=== PATIENT | female | born 1985 | race Caucasian/White ===

== ENCOUNTER 2016-07-17 15:10 | Inpatient (IN) | payer BC ==
[2016-07-17] MEDS ORDERED: Sodium Chloride 0.9% 10 ML Syringe FLUSH PRN (16:13)
[2016-07-17] MEDS ORDERED: Lactated Ringers 1,000 ML IV SCH (16:15)
[2016-07-17] MEDS ORDERED: Oxytocin/Normal Saline 10 UNIT/1,000 ML BAG IV SCH (19:45)
[2016-07-17] MEDS: Lactated Ringers 1,000 ML IV SCH (20:23)
[2016-07-18] MEDS: Lactated Ringers 1,000 ML IV SCH ×3 (00:37→11:22)
[2016-07-18] MEDS ORDERED: fentaNYL 300 MCG in Ropivacaine 200 ML IV ONE (02:00)
[2016-07-18] MEDS ORDERED: fentaNYL 100 MCG/2 ML SDV EPIDUR ONE (02:00)
--- NOTE | 2016-07-18 08:07 | PCM.LDHP ---
L&D History of Present Illness - General Date of Service: 07/17/16 Admit Problem/Dx: Patient Status Order with Admit Dx/Problem 07/17/16 15:09 Patient Status [ADT] Routine Admission Diagnosis/Problem Admission Diagnosis/Problem Normal labor Source of Information: Patient, Old records History Limitations: Reports: No limitations - History of Present Illness Introduction:: 31 primigravida with PROM,while at work today.Mild contractions. Improves with: Reports: None Worsens with: Reports: None Associated Symptoms: Denies: vaginal bleeding, vaginal clots - Related Data Allergies/Adverse Reactions: Allergies Allergy/AdvReac Type Severity Reaction Status Date / Time No Known Allergies Allergy Verified 07/17/16 16:06 Home Medications: Home Meds Citalopram Hydrobromide [Celexa] 20 mg PO DAILY 07/17/16 [History] [place]-3 Fatty Acids [Fish Oil] 300 mg PO DAILY 07/17/16 [History] Pantoprazole Sodium [Protonix] 40 mg PO DAILY 07/17/16 [History] Vit W-Ca,Fe,FA(<1 mg) [ Vitamins] 1 each PO DAILY 07/17/16 [ History] Past Medical History HEENT History: Reports: Impaired vision Cardiovascular History: Reports: Heart murmur Other Cardiovascular History: Pt reports slight heart murmer, high cholesterol 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: Psychiatric History: Reports: Anxiety, Depression - Infectious Disease History Infectious Disease History: Reports: Chicken pox - Past Surgical History HEENT Surgical History: Reports: Oral surgery Cardiovascular Surgical History: Reports: None Respiratory Surgical History: Reports: None GI Surgical History: Reports: None Other Musculoskeletal Surgeries/Procedures:: broken wrist Social & Family History - Family History Family Medical History: Noncontributory Cardiac: Reports: High cholesterol, Hypertension Other Cardiac Family History: Father OBGYN: Reports: Other OBGYN Family History: sister has PCOS Psychiatric: Reports: Anxiety, Depression Other Psychiatric Family History: Mother - Tobacco Use Smoking Status *Q: Former Smoker Years of Tobacco use: 10 Packs/Tins Daily: 0.5 Used Tobacco, but Quit: Yes Month Tobacco Last Used: November Second Hand Smoke Exposure: No - Caffeine Use Caffeine Use: Reports: None - Recreational Drug Use Recreational Drug Use: No H&P Review of Systems - Review of Systems: Review Of Systems: ROS reveals no pertinent complaints other than HPI. L&D Exam - Exam Exam: See Below - Vital Signs Vital Signs: Last Vital Signs Temp 98.3 F 07/18/16 02:15 Pulse 55 L 07/18/16 06:15 Resp 18 07/18/16 02:15 BP 115/80 07/18/16 06:15 Pulse Ox 100 07/18/16 05:00 Weight: 92.986 kg - OB Specific Contraction Duration (sec): 80-100 Contraction Frequency (min): 2-6 Contraction Intensity: Moderate to Strong - Acosta Score Acosta Score Cervix Position: Posterior Acosta Score Consistency: Soft Acosta Score Dilation: Closed Acosta Score 's Station: -2 - Exam Quality Assessment: No: supplemental oxygen General: alert, oriented HEENT: PERRLA, Conjunctiva clear Neck: supple Lungs: Clear to auscultation Cardiovascular: regular rate Abdomen: normal bowel sounds Rectal Exam: Normal exam Genitourinary: Normal external exam Back Exam: normal inspection Extremities: normal inspection Skin: warm Neurological: cranial nerves intact Psychiatric: alert - Problem List (1) PROM (premature rupture of membranes) SNOMED Code(s): 58053566 ICD Code: O42.90 - ALEX ROM, 7TH0 BETW RUPT & ONST LABR, UNSP WEEKS OF GEST Status: Acute Current Visit: Yes Problem List Initiated/Reviewed/Updated: Yes Orders Last 24hrs: Active Orders 24 hr Category Date Time Status Patient Status [ADT] Routine ADT 07/17/16 15:09 Active Antiembolic Devices [RC] .Routine Care 07/17/16 16:16 Active Up ad Michelle [RC] ASDIRECTED Care 07/17/16 16:15 Active Vital Signs [RC] PER UNIT ROUTINE Care 07/17/16 16:13 Active Lactated Ringers [Ringers, Lactated] 1,000 ml Med 07/17/16 16:15 Active IV .BOLUS Lactated Ringers [Ringers, Lactated] 1,000 ml Med 07/17/16 19:45 Active IV ASDIRECTED Oxytocin/Normal Saline [Pitocin in NS 10 UNITS/1,000 ML Med 07/17/16 19:45 Active ] 10 unit in 1,000 ml IV TITRATE Sodium Chloride 0.9% [Saline Flush] Med 07/17/16 16:13 Active 10 ml FLUSH ASDIRECTED PRN DVT/VTE Prophylaxis Reflex [OM.PC] Routine Oth 07/17/16 15:09 Ordered Peripheral IV Insertion Adult [OM.PC] Urgent Oth 07/17/16 16:13 Ordered Resuscitation Status Routine Resus Stat 07/17/16 16:13 Ordered Medication Orders Lactated Ringer's (Ringers, Lactated) 1,000 mls @ 999 mls/hr IV .BOLUS JAVIER Oxytocin/Sodium Chloride (Pitocin In Ns 10 Units/1,000 Ml) 10 unit in 1,000 mls @ 12 mls/hr IV TITRATE JAVIER; 2 MUNITS/MIN PRN Reason: Protocol Last Titration: 07/18/16 04:25 Dose: 4 munits/min, 24 mls/hr Titration: 07/18/16 03:40 Dose: 2 munits/min, 12 mls/hr Titration: 07/17/16 23:58 Dose: 6 munits/min, 36 mls/hr Titration: 07/17/16 23:11 Dose: 8 munits/min, 48 mls/hr Titration: 07/17/16 21:41 Dose: 6 munits/min, 36 mls/hr Titration: 07/17/16 21:03 Dose: 4 munits/min, 24 mls/hr Admin: 07/17/16 20:23 Dose: 2 munits/min, 12 mls/hr Lactated Ringer's (Ringers, Lactated) 1,000 mls @ 125 mls/hr IV ASDIRECTED JAVIER Last Admin: 07/18/16 04:23 Dose: 150 mls/hr Infusion: 07/18/16 02:37 Dose: 500 mls/hr Admin: 07/18/16 00:37 Dose: 500 mls/hr Infusion: 07/18/16 00:09 Dose: 500 mls/hr Infusion: 07/17/16 22:35 Dose: 500 mls/hr Admin: 07/17/16 20:23 Dose: 100 mls/hr Sodium Chloride (Saline Flush) 10 ml FLUSH ASDIRECTED PRN PRN Reason: Keep Vein Open Assessment/Plan Comment:: Induce labor by Pitocin.
--- NOTE | 2016-07-18 08:08 | PCM.PNLD ---
Labor Progress Note - VS & Meds Vital Signs: Last Vital Signs Temp 98.3 F 07/18/16 02:15 Pulse 55 L 07/18/16 06:15 Resp 18 07/18/16 02:15 BP 115/80 07/18/16 06:15 Pulse Ox 100 07/18/16 05:00 Active Medications: Current Medications Lactated Ringer's (Ringers, Lactated) 1,000 mls @ 999 mls/hr IV .BOLUS JAVIER Oxytocin/Sodium Chloride (Pitocin In Ns 10 Units/1,000 Ml) 10 unit in 1,000 mls @ 12 mls/hr IV TITRATE JAVIER; 2 MUNITS/MIN PRN Reason: Protocol Last Titration: 07/18/16 04:25 Dose: 4 munits/min, 24 mls/hr Lactated Ringer's (Ringers, Lactated) 1,000 mls @ 125 mls/hr IV ASDIRECTED JAVIER Last Admin: 07/18/16 04:23 Dose: 150 mls/hr Sodium Chloride (Saline Flush) 10 ml FLUSH ASDIRECTED PRN PRN Reason: Keep Vein Open - Uterine Contractions Uterine Monitoring Mode: External Bergoo Contraction Frequency (min): 2-6 Contraction Duration (sec): 80-100 Contraction Intensity: Moderate to Strong Uterine Resting Tone: Soft - Monitoring Heart Rate (FHR) Variability: Moderate (6-25 bmp) Accelerations: Present, 15x15 Decelerations: Early, Variable Strip Review: Category I - Vaginal Exam Dilation (cm): 2 Effacement (Percent): 80 Station: -2 Cervical Position: Midposition Sterile Vaginal Exam Performed By: Corina Bahena Vaginal Exam Comment: Cervix is still very posterior - Labor Progress (Free Text) Labor Progress: Will continue with Pit as long as the baby tolerates induction. Consider C delivery if no imminent delivery by evening
[2016-07-18] MEDS ORDERED: Naloxone 0.4 MG/ML SDV IVPUSH PRN (08:59)
[2016-07-18] MEDS ORDERED: diphenhydrAMINE 50 MG/ML SDV IVPUSH PRN (08:59)
[2016-07-18] MEDS ORDERED: Naloxone 0.4 MG in Sodium Chloride 0.9% 100 ML IV PRN (08:59)
[2016-07-18] MEDS ORDERED: ePHEDrine 50 MG/ML SDV IVPUSH PRN (08:59)
[2016-07-18] MEDS ORDERED: Ondansetron 4 MG/2 ML SDV IVPUSH PRN (09:00)
[2016-07-18] MEDS ORDERED: Ondansetron 4 MG/2 ML SDV ONE (09:01)
[2016-07-18] MEDS: Pantoprazole 40 MG Tab.CR PO SCH (09:49)
[2016-07-18] MEDS: Citalopram 20 MG Tab PO SCH (09:49)
[2016-07-18] MEDS ORDERED: Oxytocin 10 Units/1 ML SDV IM ONE (14:00)
[2016-07-18] MEDS ORDERED: Lidocaine 1% 20 ML MDV INJECT ONE (14:00)
[2016-07-18] MEDS: Ibuprofen 600 MG Tab PO PRN ×2 (16:27→22:20)
[2016-07-18] MEDS ORDERED: Acetaminophen/Codeine 300-30 MG Tab PO PRN (20:35)
[2016-07-19] MEDS: Ibuprofen 600 MG Tab PO PRN (04:37)
--- NOTE | 2016-07-19 05:35 | DEL ---
DATE OF DELIVERY: 07/18/2016 DELIVERY TYPE: Vacuum-assisted delivery. MEDICAL CODING SPECIALIST: Ann Izaguirre LPN; Phyllis, RN; and Loreto, RN. INDICATION: Non-reassuring heart rate in second stage. PERMIT: I explained the risks and benefits to the father and mother of the baby that due to maternal exhaustion and deep decelerations, a decision had to be made about expediting delivery. Risks involved include scalp hematoma, encephalopathy, intracranial hemorrhage, and maternal tissue injury. They accepted the risks and benefits and we proceeded. DETAILS OF THE DELIVERY: The patient progressed to about to complete at around noon whereby pushing was initiated at around 1230 hours. There is caput formation noted during push. The baby's heart rate was showing moderate variability with good accelerations and initially category 1. I was in the room in and out for about 1-1/2 hours to assess the patient. At around 1330 hours, I determined the position of the baby to be occipito posterior, with a station of about 2+ by digital measurement in relation to the ischial spine. I estimated the weight to be about 7 pounds. The maternal bladder was emptied. The patient had an epidural after couple pushes with deep deceleration albeit with good recovery, we proceeded with a vacuum delivery. I used stiff or rigid cup which was applied by parting the labia and making sure there was no maternal tissue involvement. Suction was applied and with only one pull, the baby's head was delivered. The suction was removed and the baby's entire body was gently delivered. The cord was cut and clamped and baby handed to the waiting nurses. Time of delivery was 1358 hours. The placenta was delivered with minimal traction and a second degree tear of the perineum midline was repaired with a 4- 0 Vicryl. Estimated blood loss less than 300 mL. Pitocin was given 10 units IM. The baby was initially not vigorous and cyanotic, needed resuscitation with Ambu bag and gentle rubbing. score estimated to be about 5 at 1 minute and 8 at 5 minutes. The mother was stable after delivery. Additional help for the baby was called for oxygenation. Using Ambu bag, heart rate came up to more than 110 and initial temperature 98.1. Respiratory rate came up to 24 and oxygen saturation up to 94% on 2 L. Blood gas was venous obtained, showed a pH of 7.2 at about 15 minutes. I then called [facility], they advised passive cooling protocol, IV fluids at 10 DW at 7.5 mL/h. The NICU team was dispatched to collect the baby. The mother is stable in the delivery room, but she has asked to be discharged to follow the baby to [place]. /[id number] CHIN/MARIELLE
[2016-07-19] MEDS: Pantoprazole 40 MG Tab.CR PO SCH (06:06)
--- NOTE | 2016-07-19 08:14 | PCM.PNPP ---
- General Info Date of Service: 07/19/16 Functional Status: Reports: pain controlled - Review of Systems General: Reports: No Symptoms HEENT: Reports: no symptoms Pulmonary: Reports: no symptoms Cardiovascular: Reports: No Symptoms Gastrointestinal: Reports: No symptoms Genitourinary: Reports: no symptoms Musculoskeletal: Reports: no symptoms Skin: Reports: no symptoms Neurological: Reports: No Symptoms Psychiatric: Reports: no symptoms - General Info Date of Service: 07/19/16 - Patient Data Vital Signs - most recent: Last Vital Signs Temp 98 F 07/19/16 02:10 Pulse 64 07/19/16 02:10 Resp 18 07/19/16 02:10 BP 116/75 07/19/16 02:10 Pulse Ox 99 07/19/16 02:10 Weight - most recent: 92.986 kg Lab Results - last 24 hrs: Laboratory Results - last 24 hr 07/19/16 Range/Units 06:25 WBC 12.9 H (4.5-12.0) X10-3/uL RBC 2.90 L (3.23-5.20) x10(6)uL Hgb 9.0 L (11.5-15.5) g/dL Hct 27.5 L (30.0-51.3) % MCV 94.9 (80-96) fL MCH 31.1 (27.7-33.6) pg MCHC 32.8 (32.2-35.4) g/dL RDW 14.2 (11.5-15.5) % Plt Count 135 (125-369) X10(3)uL MPV 8.9 (7.4-10.4) fL Neut % (Auto) 73.0 (46-82) % Lymph % (Auto) 17.0 (13-37) % Barton % (Auto) 9.2 (4-12) % Eos % (Auto) 1 (1.0-5.0) % Baso % (Auto) 0 (0-2) % Neut # (Auto) 9.4 H (1.6-8.3) # Lymph # (Auto) 2.2 (0.6-5.0) # Barton # (Auto) 1.2 (0.0-1.3) # Eos # (Auto) 0.1 (0.0-0.8) # Baso # (Auto) 0.0 (0.0-0.2) # Med Orders - Current: Current Medications Acetaminophen/Codeine Phosphate (Tylenol With Codeine No.3 300mg/30mg) 1 tab PO Q6H PRN PRN Reason: Pain (severe 7-10) Citalopram Hydrobromide (Celexa) 20 mg PO DAILY JAVIER Last Admin: 07/18/16 09:49 Dose: 20 mg Diphenhydramine HCl (Benadryl) 25 mg IVPUSH ASDIRECTED PRN PRN Reason: PRURITUS Ephedrine Sulfate (Ephedrine Sulfate) 5 mg IVPUSH ASDIRECTED PRN PRN Reason: HYPOTENSION Naloxone HCl 0.4 mg/ Sodium (Chloride) 101 mls @ 25 mls/hr IV ASDIRECTED PRN PRN Reason: PER ORDER OF ANESTHESIA Ibuprofen (Motrin) 600 mg PO Q6H PRN PRN Reason: Pain (moderate 4-6) Last Admin: 07/19/16 04:37 Dose: 600 mg Naloxone HCl (Narcan) 0.1 mg IVPUSH ASDIRECTED PRN PRN Reason: RESPIRATORY STATUS Ondansetron HCl (Zofran) 4 mg IVPUSH Q4H PRN PRN Reason: N/V Last Admin: 07/18/16 09:04 Dose: 4 mg Pantoprazole Sodium (Protonix) 40 mg PO 0600 JAVIER Last Admin: 07/19/16 06:06 Dose: 40 mg Sodium Chloride (Saline Flush) 10 ml FLUSH ASDIRECTED PRN PRN Reason: Keep Vein Open Discontinued Medications Lactated Ringer's (Ringers, Lactated) 1,000 mls @ 999 mls/hr IV .BOLUS JAVIER Oxytocin/Sodium Chloride (Pitocin In Ns 10 Units/1,000 Ml) 10 unit in 1,000 mls @ 12 mls/hr IV TITRATE JAVIER; 2 MUNITS/MIN PRN Reason: Protocol Last Titration: 07/18/16 12:40 Dose: 0 munits/min, 0 mls/hr Lactated Ringer's (Ringers, Lactated) 1,000 mls @ 125 mls/hr IV ASDIRECTED JAVIER Last Admin: 07/18/16 11:22 Dose: 150 mls/hr Lidocaine HCl (Xylocaine 1%) 20 ml INJECT ONETIME ONE Stop: 07/18/16 14:01 Last Admin: 07/18/16 14:06 Dose: 20 ml Ondansetron HCl (Zofran) Confirm Administered Dose 4 mg .ROUTE .STK-MED ONE Stop: 07/18/16 09:02 Last Admin: 07/18/16 09:05 Dose: Not Given Oxytocin (Pitocin) 10 unit IM ONETIME ONE Stop: 07/18/16 14:01 Last Admin: 07/18/16 14:09 Dose: 10 unit - Interaction Infant Disposition, : Not Applicable Support Person: - Recovery Exam Fundal Tone: Firm Fundal Level: At Umbilicus Fundal Placement: Midline Lochia Amount: Small Lochia Color: Rubra/Red Perineum Description: Intact, Minimal Bruising/Swelling Episiotomy/Laceration: Approximated Bladder Status: Voiding - Exam General: alert, oriented HEENT: Pupils equal Neck: supple Lungs: Clear to auscultation, Normal respiratory effort Cardiovascular: Regular Rate, Regular Rhythm Abdomen: bowel sounds present, soft, no tenderness, no distension Extremities: no edema Skin: warm, dry, intact Wound/Incisions: healing well Neurological: no new focal deficit Psy/Mental Status: alert, normal affect, normal mood - Problem List & Annotations (1) PROM (premature rupture of membranes) SNOMED Code(s): 63016765 Code(s): O42.90 - ALEX ROM, 7TH0 BETW RUPT & ONST LABR, UNSP WEEKS OF GEST Status: Acute Current Visit: Yes (2) Anemia SNOMED Code(s): 107325455 Code(s): D64.9 - ANEMIA, UNSPECIFIED Status: Acute Current Visit: Yes - Problem List Review Problem List Initiated/Reviewed/Updated: Yes - My Orders Last 24 Hours: My Active Orders 07/18/16 09:09 Pantoprazole [ProTONIX] 40 mg PO 0600 07/18/16 09:30 Citalopram [Celexa] 20 mg PO DAILY 07/18/16 15:56 Ibuprofen [Motrin] 600 mg PO Q6H PRN 07/18/16 20:35 Acetaminophen/Codeine [Tylenol with Codeine No.3 300MG/30MG] 1 tab PO Q6H PRN 07/18/16 Dinner Regular Diet [DIET] - Plan Plan:: DC home. Ferrous sulfate supplement.
[2016-07-19] MEDS: Citalopram 20 MG Tab PO SCH (10:27)
[2016-07-19 10:32] VITALS: BP 116/74
--- NOTE | 2016-07-20 04:40 | DISCH ---
DISCHARGE DATE: 07/19/2016 REASON FOR ADMISSION: PROM at term. DISCHARGE DIAGNOSES: 1. Vaginal delivery, assisted vacuum. 2. Anemia, blood loss. BRIEF HISTORY AND HOSPITAL COURSE: A 31-year-old female, admitted because of PROM that happened while at work. She was induced by Pitocin, delivered yesterday by assisted vacuum delivery because of non-reassuring heart rates. Baby was transferred to NICU in [place]. The patient has requested to go home early. She has no complaints this morning. Her hemoglobin is down at to 9.0. She has no dizziness, bleeding, and lochia has improved. I discharged her home to take vitamins, iron supplementations, as an outpatient and see me next week. Please note that I spent 35 minutes in the discharge of the patient. /[id number] CHIN/MARIELLE
== END 2016-07-19 08:50 | disposition home or self-care (01) | DRG 560 ==
LOC: FB.OB 15:10 → FB.OBCHECK 15:10 → FB.OB 15:11 → FB.OBCHECK 15:11 → UNDOADMIN 15:11 → FB.OB 07-18 13:58 → UNDODISIN 07-19 08:50
PROVIDERS: ADMIT Family Medicine; ATTEND Family Medicine
PROC: 10D07Z6 Extraction of Products of Conception, Vacuum, Via Natural or Artificial Opening (ICD-10-PCS; principal; 2016-07-17)
PROC: 3E033VJ Introduction of Other Hormone into Peripheral Vein, Percutaneous Approach (ICD-10-PCS; 2016-07-17)
PROC: 0KQM0ZZ Repair Perineum Muscle, Open Approach (ICD-10-PCS; 2016-07-17)
PROC: 00HU33Z Insertion of Infusion Device into Spinal Canal, Percutaneous Approach (ICD-10-PCS; 2016-07-17)
DX: O76 Abnormality in fetal heart rate and rhythm complicating labor and delivery (principal); O75.81 Maternal exhaustion complicating labor and delivery; O70.1 Second degree perineal laceration during delivery; O99.02 Anemia complicating childbirth; D64.89 Other specified anemias; Z3A.38 38 weeks gestation of pregnancy; Z37.0 Single live birth; O42.92 Full-term premature rupture of membranes, unspecified as to length of time between rupture and onset of labor
CPT/HCPCS: 36415; 85025; A4217; A9270-GY; J2405; J2590; J2795; J3010; J7120